=== PATIENT | female | born 2000 | race Caucasian/White ===

== ENCOUNTER 2021-06-26 19:20 | Emergency (ER) | payer MEDICAID, OTHER ==
[2021-06-26] MEDS ORDERED: Ondansetron 4 MG/2 ML SDV IVPUSH ONE (19:59)
[2021-06-26] MEDS ORDERED: Acetaminophen 1,000 MG in Premix Bag 1 BAG IV ONE (20:00)
[2021-06-26] MEDS ORDERED: Lactated Ringers 1,000 ML IV ONE (20:00)
== END 2021-06-26 21:40 | disposition home or self-care (01) ==
LOC: JP.ED 19:20
DX: O21.9 Vomiting of pregnancy, unspecified (principal); Z88.2 Allergy status to sulfonamides; Z3A.08 8 weeks gestation of pregnancy
CPT/HCPCS: 36415; 80048; 81001; 84702; 85025; 87086; 96365; 96375; 99282; 99284; J0131; J2405; J7120